=== PATIENT | female | born 1985 | race Hispanic/Latino ===

== ENCOUNTER 2018-02-21 12:45 | Emergency (ER) | payer BC ==
--- NOTE | 2018-02-21 13:27 | ER ---
Nurse's Notes [facility] Name: Sheyla Rodriguez Age: 32 yrs Sex: Female : 1985 Arrival Date: 02/21/2018 Time: 12:47 Bed 30 Private MD: Diagnosis: Cellulitis of External Genitalia Presentation: 02/21 12:53 Presenting complaint: Patient states: Bartholin's cyst to left side of vagina. aj Transition of care: patient was not received from another setting of care. Onset of symptoms was February 21, 2018. Risk Assessment: Do you want to hurt yourself or someone else? Patient reports no desire to harm self or others. Initial Sepsis Screen: Does the patient meet any 2 criteria? No. Patient's initial sepsis screen is negative. Does the patient have a suspected source of infection? No. Patient's initial sepsis screen is negative. Care prior to arrival: None. 12:53 Method Of Arrival: Ambulatory 12:53 Acuity: EDOUARD 4 aj Triage Assessment: 12:55 General: Appears in no apparent distress. comfortable, Behavior is calm, cooperative, aj appropriate for age. Pain: Complains of pain in left labia minora. Neuro: Level of Consciousness is awake, alert, obeys commands, Oriented to person, place, time, situation, Appropriate for age. Respiratory: Airway is patent Respiratory effort is even, unlabored, Respiratory pattern is regular, symmetrical. Derm: Skin is intact, is healthy with good turgor, Skin is pink, warm \T\ dry. normal. 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 - Social history:: Smoking status: Patient/guardian denies using tobacco. - Ebola Screening: : Patient negative for fever greater than or equal to 101.5 degrees Fahrenheit, and additional compatible Ebola Virus Disease symptoms Patient denies exposure to infectious person Patient denies travel to an Ebola-affected area in the 21 days before illness onset No symptoms or risks identified at this time. Screenin:11 Abuse screen: Denies threats or abuse. Denies injuries from another. Nutritional kr2 screening: No deficits noted. Tuberculosis screening: No symptoms or risk factors identified. Fall Risk None identified. Assessment: 13:07 General: Appears in no apparent distress. uncomfortable, well groomed, well developed, kr2 well nourished, Behavior is calm, cooperative, appropriate for age. Pain: Complains of pain in left labia minora Pain currently is 5 out of 10 on a pain scale. Quality of pain is described as tender, Is continuous, Alleviated by rest, Aggravated by sitting. Neuro: Level of Consciousness is awake, alert, obeys commands, Oriented to person, place, time, situation. Cardiovascular: Capillary refill < 3 seconds in bilateral fingers Patient's skin is warm and dry. Respiratory: Airway is patent Respiratory effort is even, unlabored, Respiratory pattern is regular, symmetrical. GI: Abdomen is round non-distended. : Reports 27 weeks Denies vaginal bleeding. EENT: Oral mucosa is moist. Derm: Skin is intact, is healthy with good turgor, Skin is pink, warm \T\ dry. Reports her doctor told her she has a Bartholin's cyst. Patient reports it has gotten bigger and more uncomfortable lately and her doctor cannot see her right now. Musculoskeletal: Circulation, motion, and sensation intact. Vital Signs: 12:55 BP 145 / 89; Pulse 107; Resp 18; Temp 98.6; Pulse Ox 100% on R/A; Weight 89.81 kg; aj Height 5 ft. 2 in. (157.48 cm); 13:13 BP 138 / 87; Pulse 98; Resp 18; Pulse Ox 99% on R/A; kr2 12:55 Body Mass Index 36.21 (89.81 kg, 157.48 cm) aj ED Course: 12:47 Patient arrived in ED. rg4 12:54 Triage completed. aj 12:55 Arm band placed on right wrist. Patient placed in an exam room. aj 12:57 Delmis Allen, DIANA is Primary Nurse. kr2 13:10 Constantine Felton PA is PHCP. cp 13:10 Constantine Marquez MD is Attending Physician. cp 13:11 Patient has correct armband on for positive identification. Bed in low position. Call kr2 light in reach. Side rails up X 1. Pulse ox on. NIBP on. Door closed. Warm blanket given. Head of bed elevated. 13:30 No provider procedures requiring assistance completed. Patient did not have IV access kr2 during this emergency room visit. Administered Medications: No medications were administered Outcome: 13:27 Discharge ordered by MD. dewayne 13:42 Discharged to home ambulatory, with family. kr2 13:42 Condition: good 13:42 Discharge instructions given to patient, family, Instructed on discharge instructions, follow up and referral plans. medication usage, Demonstrated understanding of instructions, follow-up care, medications, Prescriptions given X 1. 13:42 Patient left the ED. kr2 Signatures: Sheyla Simpson, RN RN Constantine Garcia PA PA cp Garcia, Rubi rg4 Delmis Allen RN RN kr2
--- NOTE | 2018-02-21 13:27 | EDPHYS ---
Physician Documentation [facility] Name: Sheyla Rodriguez Age: 32 yrs Sex: Female : 1985 Arrival Date: 02/21/2018 Time: 12:47 Bed 30 Private MD: ED Physician Constantine Marquez HPI: 02/21 13:15 This 32 yrs old Female presents to ER via Ambulatory with complaints of cp Vaginal Pain. 13:15 The patient presents with genitalia swelling and possible Bartholin cyst. cp 13:15 Onset: The symptoms/episode began/occurred gradually. Associated signs and symptoms: cp Pertinent negatives: diarrhea, dysuria, fever, vaginal bleeding, vaginal discharge. Severity of symptoms: in the emergency department the symptoms are unchanged, despite home interventions. 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 - Social history:: Smoking status: Patient/guardian denies using tobacco. - Ebola Screening: : Patient negative for fever greater than or equal to 101.5 degrees Fahrenheit, and additional compatible Ebola Virus Disease symptoms Patient denies exposure to infectious person Patient denies travel to an Ebola-affected area in the 21 days before illness onset No symptoms or risks identified at this time. ROS: 13:20 Constitutional: Negative for body aches, chills, fever, poor PO intake. cp 13:20 Eyes: Negative for injury, pain, redness, and discharge. cp 13:20 : Positive for external genitalia swelling, Negative for urinary symptoms, vaginal bleeding, vaginal discharge. 13:20 All other systems are negative. Exam: 13:25 Constitutional: The patient appears in no acute distress, alert, awake, non-toxic, well cp developed, well nourished. 13:25 Head/Face: Normocephalic, atraumatic. cp 13:25 Eyes: Periorbital structures: appear normal, Conjunctiva: normal, no exudate, no injection, Lids and lashes: appear normal, bilaterally. 13:25 ENT: External ear(s): are unremarkable, Nose: is normal, Mouth: is normal, Posterior pharynx: is normal, airway is patent. 13:25 Chest/axilla: Inspection: normal. 13:25 Cardiovascular: Rate: normal. 13:25 Respiratory: the patient does not display signs of respiratory distress, Respirations: normal. 13:25 Abdomen/GI: Inspection: gravid appearance, is noted, Palpation: abdomen is soft and non-tender, in all quadrants. 13:25 : Pelvic Exam: External exam: mild swelling and erythema noted left labia majora w/o abscess, the nurse was present for the exam. Vital Signs: 12:55 BP 145 / 89; Pulse 107; Resp 18; Temp 98.6; Pulse Ox 100% on R/A; Weight 89.81 kg; aj Height 5 ft. 2 in. (157.48 cm); 13:13 BP 138 / 87; Pulse 98; Resp 18; Pulse Ox 99% on R/A; kr2 12:55 Body Mass Index 36.21 (89.81 kg, 157.48 cm) aj MDM: 13:10 Patient medically screened. cp 13:25 Differential diagnosis: urinary tract infection, cellulitis, abscess. cp 13:25 Data reviewed: vital signs, nurses notes, and as a result, I will discharge patient. cp Counseling: I had a detailed discussion with the patient and/or guardian regarding: the historical points, exam findings, and any diagnostic results supporting the discharge/admit diagnosis, the need for outpatient follow up, an OB/Gyne specialist, to return to the emergency department if symptoms worsen or persist or if there are any questions or concerns that arise at home. 02/21 13:10 Order name: Urine Dipstick-Ancillary (obtain specimen); Complete Time: 13:41 cp 02/21 13:14 Order name: Pelvic Exam Setup; Complete Time: 13:40 cp Administered Medications: No medications were administered Disposition: 02/21/18 13:27 Discharged to Home. Impression: Cellulitis of External Genitalia. - Condition is Stable. - Discharge Instructions: Cellulitis, Adult. - Prescriptions for Clindamycin HCl 300 mg Oral Capsule - take 1 capsule by ORAL route every 6 hours for 10 days; 40 capsule. - Medication Reconciliation Form, Thank You Letter, Antibiotic Education, Prescription Opioid Use form. - Follow up: Private Physician; When: 5 - 6 days; Reason: Recheck today's complaints. - Problem is new. - Symptoms are unchanged. Addendum: 02/22/2018 15:17 Co-signature as Attending Physician, Constantine Marquez MD I agree with the assessment and c wiley plan of care. Signatures: Sheyla Simpson, RN RN Constantine Montes De Oca MD MD cha Page, Corey, PA PA Delmis Coffman RN RN kr2 Corrections: (The following items were deleted from the chart) 02/21 13:41 13:10 Urine Test ordered. cp kr2 13:42 13:27 02/21/2018 13:27 Discharged to Home. Impression: Cellulitis of External kr2 Genitalia. Condition is Stable. Forms are Medication Reconciliation Form, Thank You Letter, Antibiotic Education, Prescription Opioid Use. Follow up: Private Physician; When: 5 - 6 days; Reason: Recheck today's complaints. Problem is new. Symptoms are unchanged. cp
== END 2018-02-21 13:42 | disposition home or self-care (01) ==
LOC: ER 12:45
DX: N76.4 Abscess of vulva (principal); E11.9 Type 2 diabetes mellitus without complications; Z79.4 Long term (current) use of insulin; Z88.6 Allergy status to analgesic agent
CPT/HCPCS: 99283